=== PATIENT | female | born 1940 | race American Indian/Alaskan Native ===

== ENCOUNTER 2017-05-10 08:38 | Emergency (ER) | payer MEDICARE, BC ==
[~2017-05-10] VITALS: Ht 160 cm; Wt 59.0 kg
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
[2017-05-10] MEDS ORDERED: IBUPROFEN 400 MG TABLET ONE (08:45)
[2017-05-10] MEDS ORDERED: IBUPROFEN 600 MG TABLET PO ONE (08:47)
--- NOTE | 2017-05-10 08:54 | NUR ---
PT TAKEN TO CT VIA WC
[2017-05-10] MEDS ORDERED: IBUPROFEN 400 MG TABLET PO ONE (09:00)
--- NOTE | 2017-05-10 10:58 | NUR ---
Patient discharged to home in stable condition. Written and verbal after care instructions given. Patient verbalizes understanding of instruction. nad noted. no further complaints.
[2017-05-10 11:04] VITALS: BP 125/68
== END 2017-05-10 11:05 | disposition home or self-care (01) ==
LOC: ER 08:40
DX: S16.1XXA Strain of muscle, fascia and tendon at neck level, initial encounter (principal); S80.01XA Contusion of right knee, initial encounter; V43.52XA Car driver injured in collision with other type car in traffic accident, initial encounter; Y93.89 Activity, other specified; Y92.488 Other paved roadways as the place of occurrence of the external cause; Y99.8 Other external cause status
CPT/HCPCS: 71100-TC; 72125-TC; 73564-TC; 73590-TC; 73700-TC; A4606; Z7610